=== PATIENT | male | born 1925 | race Caucasian/White ===

== ENCOUNTER 2016-08-17 11:08 | Emergency (ER) | payer BC ==
[2016-08-17 10:28] LABS: BASOPHILS 0 %; EOSINOPHILS 0.6 %; EOSINOPHILS ABSOLUTE 0.04 10/3/uL (0.0-0.53); ER CBC TAT 0 Hrs 05 Mins; HEMATOCRIT 44.3 % (40.0-51.0); HEMOGLOBIN 15.1 g/dL (13.6-17.8); IMMATURE GRANULOCYTES 0.1 %; IMMATURE GRANULOCYTES ABSOLUTE 0.01 10/3/uL (0.0-0.11); LYMPHOCYTES ABSOLUTE 1.49 10/3/uL (0.67-4.30); MEAN PLATELET VOLUME 10.2 fL (9.2-13.0); MONOCYTES 9.9 %; NEUTROPHILS 68.4 %; NEUTROPHILS ABSOLUTE 4.85 10/3/uL (2.02-8.40); PLATELET COUNT 171 10/3/uL (150-400); WHITE BLOOD CELLS 7.1 10/3/uL (4.5-10.5)
[2016-08-17 10:29] LABS: MANUAL DIFF NO %; MEAN CORPUS HGB CONC 34.1 g/dL (32.0-36.0); MEAN CORPUSCULAR HEMOGLOB 31.5 pg (26.0-34.0); MEAN CORPUSCULAR VOLUME 92.3 fL (80-100); RBC DISTRIBUTION WIDTH 12.7 % (12.0-16.0)
[2016-08-17 10:37] LABS: INTERNATIONAL NORMAL RATI 2.3 UNITS (-); PARTIAL THROMBO TIME 39.5 SEC (22.5-37.2)
[2016-08-17 10:43] LABS: BUN (BLOOD UREA NITROGEN) 17 MG/DL (6-23); CHLORIDE, SERUM 102 MMOL/L (96-112); CO2 (CARBON DIOXIDE) 29 MMOL/L (24-34); CREATININE 1.13 MG/DL (0.70-1.30); GFR AFRICAN AMERICAN 66 ML/MIN (>=60); GFR NON AFRICAN AMERICAN 57 ML/MIN (>=60); GLUCOSE, SERUM 224 MG/DL (60-99); SODIUM, SERUM 139 MMOL/L (135-148)
[~2016-08-17 11:08] MED LIST: ASAB PO; CIP5 PO; CLINDA150 PO; CYANO1000T PO; DIOVAN HCT320 MG/25 PO; JANTOVEN10 MG PO; LOP25 PO; NEUR300 PO; NORV25 PO; ZOCOR10 PO
== END 2016-08-17 11:48 | disposition home or self-care (01) ==
LOC: ER 11:08
PROVIDERS: Nurse Practitioner
DX: S60.222A Contusion of left hand, initial encounter (principal); E11.9 Type 2 diabetes mellitus without complications; I10 Essential (primary) hypertension; I48.91 Unspecified atrial fibrillation; Z88.8 Allergy status to other drugs, medicaments and biological substances; Z88.2 Allergy status to sulfonamides; Z88.6 Allergy status to analgesic agent; Z79.01 Long term (current) use of anticoagulants; Z79.82 Long term (current) use of aspirin; Z79.899 Other long term (current) drug therapy
CPT/HCPCS: 73110-LT; 73130-LT; 80048; 85025; 85610; 85730; 99284